=== PATIENT | female | born 1990 | race Caucasian/White ===

== ENCOUNTER 2018-06-04 02:15 | Inpatient (IN) | payer MEDICAID ==
[2018-06-04] MEDS ORDERED: MISOPROSTOL 200 MCG TAB PR (03:00)
[2018-06-04] MEDS ORDERED: OXYTOCIN 30 UNITS/LR 500 ML IV (03:00)
[2018-06-04] MEDS ORDERED: BUTORPHANOL 2 MG INJ IV (03:00)
[2018-06-04] MEDS ORDERED: METHYLERGONOVINE 0.2 MG INJ IM (03:00)
[2018-06-04] MEDS ORDERED: CARBOPROST 250 MCG INJ IM (03:00)
[2018-06-04] MEDS: LACTATED RINGER'S 1,000 ML IV* ×3 (06:04→19:48)
[2018-06-04 06:48] LABS: ADD MAN DIFF? NO
[2018-06-04 06:51] LABS: WHITE BLOOD COUNT 8.8 10^3/ul (4.8-10.8)
[2018-06-04 06:51] LABS: BASOPHILS % 0.2 % (0.0-2.0); EOSINOPHILS # 0.2 10^3/ul (0.0-0.5); EOSINOPHILS % 1.8 % (0.0-7.0); HEMATOCRIT 40.2 % (37.0-47.0); HEMOGLOBIN 13.2 g/dl (12.0-16.0); LYMPHOCYTES # 2.4 10^3/ul (0.8-2.9); LYMPHOCYTES % 27.6 % (15.0-51.0); MEAN CORPUSCULAR HEMOGLOBIN 29.7 pg (29.0-33.0); MEAN CORPUSCULAR HGB CONC 32.8 g/dl (32.0-37.0); MEAN CORPUSCULAR VOLUME 90.5 fl (82.0-101.0); MEAN PLATELET VOLUME 9.7 fl (7.4-10.4); MONOCYTE # 0.5 10^3/ul (0.3-0.9); MONOCYTES % 5.4 % (0.0-11.0); NEUTROPHIL # 5.7 10^3/ul (1.6-7.5); NEUTROPHILS % 64.2 % (39.0-77.0); PLATELET COUNT 260 10^3/UL (140-415); RED BLOOD COUNT 4.44 10^6/ul (4.20-5.40); RED CELL DISTRIBUTION WIDTH 15.5 % (11.5-14.5)
[2018-06-04 07:12] LABS: INR 0.85; PARTIAL THROMBOPLASTIN TIME 30.8 Sec (25.0-35.0); PROTIME 11.7 Sec (11.9-14.9); PT RATIO 0.9
[2018-06-04 08:18] LABS: HEPATITIS B SURFACE ANTIGEN NEGATIVE (NEGATIVE)
[2018-06-04] MEDS: MISOPROSTOL 25 MCG CAPSULE PO ×4 (08:27→22:01)
[2018-06-04] MEDS ORDERED: MISOPROSTOL 25 MCG CAPSULE PO (09:00)
[2018-06-04 19:38] LABS: RAPID PLASMA REAGIN NONREACTIVE (NR)
[2018-06-05] MEDS: MISOPROSTOL 25 MCG CAPSULE PO ×5 (02:12→20:34)
[2018-06-05] MEDS: LACTATED RINGER'S 1,000 ML IV* ×3 (04:07→23:19)
[2018-06-06] MEDS: MISOPROSTOL 25 MCG CAPSULE PO ×2 (00:39→01:00)
[2018-06-06] MEDS: OXYTOCIN 30 UNITS/LR 500 ML IV (02:40)
[2018-06-06] MEDS: LACTATED RINGER'S 1,000 ML IV* ×3 (07:15→21:39)
[2018-06-06] MEDS: LACTATED RINGER'S 1,000 ML IV (16:55)
[2018-06-06] MEDS ORDERED: NALOXONE (0.4 MG/ML) INJ IV (17:00)
[2018-06-07] MEDS: LACTATED RINGER'S 1,000 ML IV* ×5 (01:51→20:42)
[2018-06-07] MEDS: FENTAnyl 2MCG/ML-ROPIV 0.2% 100 ML BAG EPI ×3 (02:58→22:35)
[2018-06-08] MEDS: LACTATED RINGER'S 1,000 ML IV* ×3 (04:04→17:32)
[2018-06-08] MEDS: OXYTOCIN 30 UNITS/LR 500 ML IV ×2 (04:08→20:26)
[2018-06-08] MEDS: FENTAnyl 2MCG/ML-ROPIV 0.2% 100 ML BAG EPI ×2 (08:43→18:51)
[2018-06-08 11:04] LABS: AMPHETAMINE/METHAMPHETAMINE Negative (NEGATIVE); BARBITURATES Negative (NEGATIVE); BENZODIAZEPINES Negative (NEGATIVE); CANNABINOIDS Negative (NEGATIVE); COCAINE Negative (NEGATIVE); OPIATES Negative (NEGATIVE)
[2018-06-08] MEDS: ACETAMINOPHEN 325 MG TAB PO (18:44)
[2018-06-09] MEDS: FENTAnyl 2MCG/ML-ROPIV 0.2% 100 ML BAG EPI ×2 (03:04→09:25)
[2018-06-09] MEDS: LACTATED RINGER'S 1,000 ML IV* (03:44)
[2018-06-09] MEDS: AMPICILLIN 2 GM/NS (PMX) 100 ML IV (06:36)
[2018-06-09] MEDS: ONDANSETRON 4 MG INJ IV (10:04)
[2018-06-09] MEDS: AMPICILLIN 1 GM/NS (PMX) 50 ML IV ×2 (10:43→14:52)
[2018-06-09] MEDS: ACETAMINOPHEN 325 MG TAB PO (10:59)
[2018-06-09] MEDS: GENTAMICIN 120 MG/NS (PMX) 100 ML IVPB (11:32)
[2018-06-09] MEDS: MINERAL OIL LIGHT 10 ML VIAL TOP (13:30)
[2018-06-09] MEDS: LIDOCAINE 1% (MPF) 30 ML INJ INJ (13:32)
[2018-06-09] MEDS: OXYTOCIN 30 UNITS/LR 500 ML IV ×3 (13:38→13:44)
[2018-06-09] MEDS: IBUPROFEN 600 MG TAB PO ×2 (14:50→18:26)
[2018-06-09] MEDS ORDERED: ZOLPIDEM 5 MG TAB PO (16:30)
[2018-06-09] MEDS ORDERED: OXYTOCIN 30 UNITS/LR 500 ML IV (16:30)
[2018-06-09] MEDS ORDERED: LANOLIN 7 GM TUBE TOP (16:30)
[2018-06-09] MEDS ORDERED: CARBOPROST 250 MCG INJ IM (16:30)
[2018-06-09] MEDS ORDERED: METHYLERGONOVINE 0.2 MG INJ IM (16:30)
[2018-06-09] MEDS ORDERED: WITCH HAZEL/GLYCERIN PAD PR (16:30)
[2018-06-09] MEDS ORDERED: OXYCODONE/ASPIRIN (4.88/325) TAB PO (16:30)
[2018-06-09] MEDS ORDERED: MISOPROSTOL 200 MCG TAB PR (16:30)
[2018-06-10] MEDS: LACTATED RINGER'S 1,000 ML IV* ×2 (03:00→11:00)
[2018-06-10] MEDS: IBUPROFEN 600 MG TAB PO ×4 (06:37→18:10)
[2018-06-10 08:23] LABS: ADD MAN DIFF? NO
[2018-06-10 08:27] LABS: WHITE BLOOD COUNT 13.1 10^3/ul (4.8-10.8)
[2018-06-10 08:27] LABS: BASOPHILS % 0.2 % (0.0-2.0); EOSINOPHILS # 0.1 10^3/ul (0.0-0.5); EOSINOPHILS % 1.1 % (0.0-7.0); HEMATOCRIT 30.6 % (37.0-47.0); HEMOGLOBIN 10.3 g/dl (12.0-16.0); LYMPHOCYTES # 1.4 10^3/ul (0.8-2.9); LYMPHOCYTES % 10.7 % (15.0-51.0); MEAN CORPUSCULAR HEMOGLOBIN 30.3 pg (29.0-33.0); MEAN CORPUSCULAR HGB CONC 33.7 g/dl (32.0-37.0); MEAN PLATELET VOLUME 10.1 fl (7.4-10.4); MONOCYTE # 0.5 10^3/ul (0.3-0.9); MONOCYTES % 3.8 % (0.0-11.0); NEUTROPHIL # 10.9 10^3/ul (1.6-7.5); NEUTROPHILS % 83.1 % (39.0-77.0); PLATELET COUNT 177 10^3/UL (140-415); RED CELL DISTRIBUTION WIDTH 15.3 % (11.5-14.5)
[2018-06-10] MEDS: SENNA/DOCUSATE NA (8.6MG/50MG) TAB PO ×3 (09:09→22:37)
[2018-06-10] MEDS: BENZOCAINE 20% 56 ML SPRAY TOP (11:42)
[2018-06-10] MEDS: PIPER-TAZO 3.375 GM IV (PMX) 100 ML IVPB (22:37)
[2018-06-11] MEDS: OXYCODONE/ASPIRIN (4.88/325) TAB PO (03:20)
[2018-06-11] MEDS: PIPER-TAZO 3.375 GM IV (PMX) 100 ML IVPB ×2 (06:52→13:50)
[2018-06-11] MEDS: IBUPROFEN 600 MG TAB PO ×3 (06:52→13:49)
[2018-06-11] MEDS: SENNA/DOCUSATE NA (8.6MG/50MG) TAB PO (09:00)
[2018-06-11] MEDS: DIPHTH/TET/ACEL PERTUSS (ADULT) 0.5 ML VIAL IM* (09:00)
[2018-06-11 14:50] LABS: ADD MAN DIFF? NO
[2018-06-11 14:51] LABS: WHITE BLOOD COUNT 12.3 10^3/ul (4.8-10.8)
[2018-06-11 14:51] LABS: BASOPHILS % 0.2 % (0.0-2.0); EOSINOPHILS # 0.2 10^3/ul (0.0-0.5); EOSINOPHILS % 1.6 % (0.0-7.0); HEMATOCRIT 32.1 % (37.0-47.0); HEMOGLOBIN 10.6 g/dl (12.0-16.0); LYMPHOCYTES # 1.9 10^3/ul (0.8-2.9); LYMPHOCYTES % 15.5 % (15.0-51.0); MEAN CORPUSCULAR HEMOGLOBIN 29.9 pg (29.0-33.0); MEAN CORPUSCULAR VOLUME 90.7 fl (82.0-101.0); MEAN PLATELET VOLUME 9.9 fl (7.4-10.4); MONOCYTE # 0.3 10^3/ul (0.3-0.9); MONOCYTES % 2.2 % (0.0-11.0); NEUTROPHIL # 9.8 10^3/ul (1.6-7.5); NEUTROPHILS % 79.7 % (39.0-77.0); PLATELET COUNT 195 10^3/UL (140-415); RED BLOOD COUNT 3.54 10^6/ul (4.20-5.40); RED CELL DISTRIBUTION WIDTH 15.5 % (11.5-14.5)
== END 2018-06-11 16:30 | disposition home or self-care (01) | DRG 775 ==
LOC: OBT 02:15 → PP1 06-09 15:40 → L-D 02:15 → OBT 02:35 → L-D 02:35
PROVIDERS: Obstetrics & Gynecology
PROC: 10E0XZZ Delivery of Products of Conception, External Approach (ICD-10-PCS; principal; 2018-06-06)
PROC: 3E033VJ Introduction of Other Hormone into Peripheral Vein, Percutaneous Approach (ICD-10-PCS; 2018-06-06)
DX: O99.89 Other specified diseases and conditions complicating pregnancy, childbirth and the puerperium (principal); O48.0 Post-term pregnancy; Z3A.41 41 weeks gestation of pregnancy; R00.1 Bradycardia, unspecified; Z37.0 Single live birth
CPT/HCPCS: 62319; 76815; 80307; 85025; 85610; 85730; 86592; 86850; 86900; 86901; 87340; 88307; 99464